=== PATIENT | male | born 1995 | race Caucasian/White ===

== ENCOUNTER 2017-01-09 14:59 | Emergency (ER) | payer MEDICAID ==
[~2017-01-09] VITALS: Ht 167.6 cm; Wt 54.2 kg
[2017-01-09 15:12] VITALS: BP 102/55
--- NOTE | 2017-01-09 16:20 | NUR ---
21/M PRESENT TO ER C/O BURNING URINATION x 4 DAYS AGO. PAIN 6/10 BURNING ON PENILE AREA. DENIES DISCHARGE OR ODOR. PT STATES HE HAD UNPROTECTED SEX 4 WEEKS AGO. AAOx4 , PERRLA, BREATHING EVEN AND UNLABORED. ERMD NOTIFIED OF PATIENT STATUS.
--- NOTE | 2017-01-09 16:29 | NUR ---
Patient being evaluated by physician at triage/overflow area.
[2017-01-09] MEDS ORDERED: cefTRIAXone 250 MG in LIDOCAINE 1% ED 0.9 ML IM ONE (16:30)
[2017-01-09 16:43] LABS: APPEARANCE,URINE CLEAR (CLEAR); BILIRUBIN,URINE NEGATIVE (NEGATIVE); BLOOD, URINE NEGATIVE (NEGATIVE); COLOR,URINE YELLOW (YELLOW); LEUKOCYTE ESTERASE ,URINE NEGATIVE (NEGATIVE); NITRITE, URINE NEGATIVE (NEGATIVE); PROTEIN,URINE TRACE (NEGATIVE); UGLUCOSE NEGATIVE (NEGATIVE); UROBILINOGEN,URINE 0.2 EU/dL (0.2 - 1)
[2017-01-09 16:55] LABS: BACTERIA,URINE RARE /HPF (None Seen); MUCUS,URINE 4+ /LPF (None Seen); RBC,URINE 0-3 /HPF (0-5); SQUAMOUS EPITHELIAL CELL,UR None Seen /LPF (0-3 (FEW))
--- NOTE | 2017-01-09 17:04 | NUR ---
Patient discharged with v/s stable. Written and verbal after care instructions given and explained. Patient alert, oriented and verbalized understanding of instructions. Ambulatory with steady gait. All questions addressed prior to discharge. ID band removed. Patient advised to follow up with PMD. Rx of DOXYCYCLINE 100MG given. Patient educated on indication of medication including possible reaction and side effects. Opportunity to ask questions provided and answered.
[2017-01-09 17:05] VITALS: BP 121/71
== END 2017-01-09 17:04 | disposition home or self-care (01) ==
LOC: MED 14:59
DX: R30.9 Painful micturition, unspecified (principal)
CPT/HCPCS: 36415; 81001; 81003; 87086; 96372; 99284; J0696; J2001

== ENCOUNTER 2018-07-22 11:50 | Emergency (ER) | payer SELFPAY ==
[~2018-07-22] VITALS: Ht 167.6 cm; Wt 56.7 kg
[2018-07-22 11:58] VITALS: BP 118/63
--- NOTE | 2018-07-22 12:00 | NUR ---
PT TRIAGED AND SENT TO ER LOBBY
--- NOTE | 2018-07-22 12:23 | NUR ---
PT TO ER BED 4
--- NOTE | 2018-07-22 12:53 | NUR ---
PATIENT PRESENTS TO ED WITH C/O OD BURNING PAIN WITH DRAINAGE X 4 DAYS---DENIES INJURY . DENIES N/V/D; SKIN IS PINK/WARM/DRY; AAOX4 WITH EVEN AND STEADY GAIT; LUNGS CLEAR BL; HR EVEN AND REGULAR; PT DENIES ANY FEVER, CP, SOB, OR COUGH AT THIS TIME; PATIENT STATES PAIN OF 8/10 AT THIS TIME; VSS; PATIENT POSITIONED FOR COMFORT; HOB ELEVATED; BEDRAILS UP X2; BED DOWN. ER MD MADE AWARE OF PT STATUS.
--- NOTE | 2018-07-22 14:22 | NUR ---
laying semi-fry's with sunglasses on ---continues to wait for dispo. feet crossed and arms folded over abdomen
[2018-07-22 15:01] VITALS: BP 118/63
--- NOTE | 2018-07-22 15:01 | NUR ---
Patient discharged with v/s stable. Written and verbal after care instructions given and explained. Patient alert, oriented and verbalized understanding of instructions. Ambulatory with steady gait. All questions addressed prior to discharge. ID band removed. Patient advised to follow up with PMD. Rx of ERYTHROMYCIN/ NAPHCON given. Patient educated on indication of medication including possible reaction and side effects. Opportunity to ask questions provided and answered.
== END 2018-07-22 15:01 | disposition home or self-care (01) ==
LOC: MED 11:50
DX: H10.31 Unspecified acute conjunctivitis, right eye (principal); Z98.890 Other specified postprocedural states
CPT/HCPCS: 99283

== ENCOUNTER 2020-01-01 20:33 | Emergency (ER) | payer OTHER ==
[~2020-01-01] VITALS: Ht 167.6 cm; Wt 54.4 kg
[2020-01-01 20:40] VITALS: BP 102/45
--- NOTE | 2020-01-01 20:53 | NUR ---
PT TAKEN TO ER 4
--- NOTE | 2020-01-01 20:55 | NUR ---
Dr. Boyle examining patient.
--- NOTE | 2020-01-01 21:00 | NUR ---
PT SITTING UPRIGHT, UNDSITURBED AND APPEARS UNDISTRESSED. NO ACUTE DISTRESS AT THIS TIME. BREATHING EVEN, UNLABORED.
[2020-01-01] MEDS ORDERED: cefTRIAXone 250 MG in LIDOCAINE MPF 1% 0.9 ML IM ONE (21:05)
[2020-01-01] MEDS ORDERED: AZITHROMYCIN 250 MG TAB PO ONE (21:05)
[2020-01-01] MEDS ORDERED: LIDOCAINE MPF 1% 5 ML ONE (21:09)
[2020-01-01] MEDS ORDERED: cefTRIAXone 250 MG VIAL ONE (21:09)
[2020-01-01 21:33] LABS: APPEARANCE,URINE CLEAR (CLEAR); COLOR,URINE YELLOW (YELLOW)
[2020-01-01 21:34] LABS: BILIRUBIN,URINE NEGATIVE (NEGATIVE); BLOOD, URINE NEGATIVE (NEGATIVE); LEUKOCYTE ESTERASE ,URINE NEGATIVE (NEGATIVE); NITRITE, URINE NEGATIVE (NEGATIVE); UGLUCOSE NEGATIVE (NEGATIVE)
[2020-01-01 21:35] VITALS: BP 102/45
--- NOTE | 2020-01-01 21:35 | NUR ---
Patient discharged with v/s stable. Written and verbal after care instructions given and explained. Patient alert, oriented and verbalized understanding of instructions. Ambulatory with steady gait. All questions addressed prior to discharge. ID band removed. Patient advised to follow up with PMD. Rx of Pyridium given. Patient educated on indication of medication including possible reaction and side effects. Opportunity to ask questions provided and answered.
[2020-01-04 06:07] LABS: CHLAMYDIA TRACHOMATIS AMP DNA Positive (Negative)
== END 2020-01-01 21:35 | disposition home or self-care (01) ==
LOC: MED 20:33
DX: R30.0 Dysuria (principal); A63.8 Other specified predominantly sexually transmitted diseases
CPT/HCPCS: 36415; 81003; 87491; 96372; 99283; J0696; J2001; 96374

== ENCOUNTER 2020-09-26 15:55 | Emergency (ER) | payer MEDICAID, OTHER ==
[~2020-09-26] VITALS: Ht 167.6 cm; Wt 54.4 kg
[2020-09-26 16:12] VITALS: BP 98/45
--- NOTE | 2020-09-26 17:21 | NUR ---
BIB SELF C/O RASH TO SID ARMPITS X 4 DAYS AND RIGHT HAND & RIGHT WRIST PAIN S/P FALL 1 WEEK.PMH: DENIES.AAOX4 WITH EVEN AND STEADY GAIT; LUNGS CLEAR BL; HR EVEN AND REGULAR; PT DENIES ANY FEVER, CP, SOB, OR COUGH AT THIS TIME; PATIENT STATES PAIN OF 10/10 AT THIS TIME. PATIENT POSITIONED FOR COMFORT; HOB ELEVATED; BEDRAILS UP X2; BED DOWN. ER MD MADE AWARE OF PT STATUS.
[2020-09-26] MEDS ORDERED: KETOROLAC 30 MG/ML VIAL IM ONE (17:25)
--- NOTE | 2020-09-26 17:30 | NUR ---
APPLIED VOLAR SPLINT TO RIGHT WRIST WITHOUT ANY ISSUES
[2020-09-26] MEDS ORDERED: NAPR-54 PO (17:42)
[2020-09-26] MEDS ORDERED: KEN.1O TP (17:42)
[2020-09-26] MEDS ORDERED: NYST15CR6 TP (17:42)
--- NOTE | 2020-09-26 18:09 | NUR ---
Patient discharged with v/s stable. Written and verbal after care instructions given and explained. Patient alert, oriented and verbalized understanding of instructions. Ambulatory with steady gait. All questions addressed prior to discharge. ID band removed. Patient advised to follow up with PMD. Rx of NAPROXEN, NYSTATIN & KENALOG given. Patient educated on indication of medication including possible reaction and side effects. Opportunity to ask questions provided and answered.
[2020-09-26 18:10] VITALS: BP 98/45
== END 2020-09-26 18:10 | disposition home or self-care (01) ==
LOC: MED 15:55
DX: M25.531 Pain in right wrist (principal); L30.9 Dermatitis, unspecified
CPT/HCPCS: 29125; 73110; 73130; 96372; 99284; J1885

== ENCOUNTER 2020-12-10 21:05 | Emergency (ER) | payer MEDICAID ==
[~2020-12-10] VITALS: Ht 165.1 cm; Wt 53.1 kg
[~2020-12-10 21:05] MED LIST: KEN.1O TP; NAPR-54 PO; NYST15CR6 TP
[2020-12-10 21:09] VITALS: BP 120/67
--- NOTE | 2020-12-10 22:20 | NUR ---
Patient evaluated by Dr. Summers. No nursing care provided for patient.
[2020-12-10] MEDS ORDERED: HYD2.5O TP (22:21)
--- NOTE | 2020-12-10 22:24 | NUR ---
Patient discharged by Dr. Summers. Discharge instructions and medication administrations/side effects explained by Dr. Summers. Patient discharged in stable condition. All questions asked and answered prior to discharge.
== END 2020-12-10 22:24 | disposition home or self-care (01) ==
LOC: MED 21:05
DX: L25.9 Unspecified contact dermatitis, unspecified cause (principal); Z79.899 Other long term (current) drug therapy
CPT/HCPCS: 99282

== ENCOUNTER 2021-12-22 12:41 | Emergency (ER) | payer MEDICAID, OTHER ==
[~2021-12-22] VITALS: Ht 167.6 cm; Wt 51.7 kg
[2021-12-22 12:54] VITALS: BP 126/72
--- NOTE | 2021-12-22 13:00 | NUR ---
HANDED SWAB TO RAÚL LA TECH
--- NOTE | 2021-12-22 13:27 | NUR ---
PT AMBULATED TO OUTSIDE THE LOBBY
--- NOTE | 2021-12-22 13:43 | NUR ---
DR SANCHEZ AT PT SIDE FOR FURTHER EVAL
--- NOTE | 2021-12-22 13:46 | NUR ---
26 Y/O MALE C/O OF SORE THROAT AND NON-PRODUCTIVE COUGHX1 WEEK. SATTING AT 99% RA, BILATERAL LUNG SOUNDS CLEAR, DENIES ANY MEDICATION FOR COUGH NKA PMH: DENIES
[2021-12-22] MEDS ORDERED: PHEN177S23 PO (13:49)
[2021-12-22] MEDS ORDERED: BENZ-300 PO (13:49)
[2021-12-22] MEDS ORDERED: IBUP-1842 PO (13:49)
[2021-12-22 14:06] VITALS: BP 126/72
--- NOTE | 2021-12-22 14:07 | NUR ---
Patient discharged with v/s stable. Written and verbal after care instructions given and explained. Patient alert, oriented and verbalized understanding of instructions. Ambulatory with steady gait. All questions addressed prior to discharge. ID band removed. Patient advised to follow up with PMD. Rx of CEPACOL SORE THROAT LOZENGE, MOTRIN, CHLORASEPTIOC 177ML given. Patient educated on indication of medication including possible reaction and side effects. Opportunity to ask questions provided and answered.
== END 2021-12-22 14:07 | disposition home or self-care (01) ==
LOC: MED 12:41
DX: U07.1 COVID-19 (principal); J02.9 Acute pharyngitis, unspecified; Z79.899 Other long term (current) drug therapy
CPT/HCPCS: 99283

== ENCOUNTER 2022-02-03 19:59 | Emergency (ER) | payer OTHER ==
[~2022-02-03] VITALS: Ht 167.6 cm; Wt 54.0 kg
[~2022-02-03 19:59] MED LIST changes: +BENZ-300 PO; +IBUP-1842 PO; +PHEN177S23 PO
[2022-02-03 20:19] VITALS: BP 109/61
--- NOTE | 2022-02-03 20:24 | NUR ---
pt to lobby
--- NOTE | 2022-02-03 23:30 | NUR ---
26/M BIB SELF C/C PENILE D/C XFRIDAY. PER PATIENT DISCHARGE IS WHITE IN COLOR. DENIES N/V/D/FEVER/URINARY SYMP/PAIN AT THIS TIME. PATIENT STATED HE HAS HAD CHLAMYDIA IN THE PAST. PATIENT IS CURRENTLY SEXUALLY ACTIVE. PATIETN IS AAOX4 AND AMBULATORY. DOESNT APPEAR TO BE IN DISTRESS. ALL NEEDS MET. PMHX , RX DENIES NKA
--- NOTE | 2022-02-03 23:32 | NUR ---
PT TO BED 6
--- NOTE | 2022-02-03 23:32 | NUR ---
Cherelle patino in [facility] - 02/03/22 at 2332 by SALO pt ambulated to alex
--- NOTE | 2022-02-03 23:45 | NUR ---
URINE COLLECTED AND DIPPED.
[2022-02-04] MEDS ORDERED: DOXYCYCLINE 100 MG CAP PO ONE (00:05)
[2022-02-04] MEDS ORDERED: cefTRIAXone 500 MG in LIDOCAINE MPF 1% 1 ML IM ONE (00:05)
[2022-02-04] MEDS ORDERED: cefTRIAXone 500 MG VIAL ONE (00:07)
[2022-02-04] MEDS ORDERED: LIDOCAINE MPF 1% 5 ML ONE (00:07)
--- NOTE | 2022-02-04 00:11 | NUR ---
PATIENT MEDICATED. TOLERATED WELL.
[2022-02-04] MEDS ORDERED: DOXY-690 PO (00:29)
--- NOTE | 2022-02-04 00:36 | NUR ---
Dr. Boyle examining patient.
[2022-02-04] MEDS ORDERED: DOXY-487 PO (00:53)
[2022-02-04 01:07] VITALS: BP 110/75
--- NOTE | 2022-02-04 01:07 | NUR ---
Patient discharged with v/s stable. Written and verbal after care instructions given and explained. Patient alert, oriented and verbalized understanding of instructions. Ambulatory with steady gait. All questions addressed prior to discharge. ID band removed. Patient advised to follow up with PMD. Rx of DOXYCYCLINE given.
--- NOTE | 2022-02-04 01:14 | NUR ---
The patient's care was reviewed and supervised by Concepción Loya RN.
== END 2022-02-04 01:07 | disposition home or self-care (01) ==
LOC: MED 19:59
DX: A64 Unspecified sexually transmitted disease (principal); Z79.2 Long term (current) use of antibiotics; Z79.899 Other long term (current) drug therapy; Z79.1 Long term (current) use of non-steroidal anti-inflammatories (NSAID)
CPT/HCPCS: 81002; 86592; 87491; 96372; 99283; J0696; J2001

== ENCOUNTER 2022-04-11 16:21 | Emergency (ER) | payer OTHER ==
[~2022-04-11] VITALS: Ht 167.6 cm; Wt 70.3 kg
[~2022-04-11 16:21] MED LIST changes: +DOXY-487 PO
--- NOTE | 2022-04-11 16:41 | NUR ---
PATIENT LEFT WITHOUT BEING SEEN BY DR. MURO. NO FURTHER CARE PROVIDED FOR PATIENT.
[2022-04-11 17:10] VITALS: BP 118/67
--- NOTE | 2022-04-11 17:30 | NUR ---
PT BROUGHT TO ROOM BY TRIAGE
[2022-04-11] MEDS ORDERED: BACITRACIN OINT 500 UNITS/GM PKT TP ONE (17:35)
--- NOTE | 2022-04-11 17:40 | NUR ---
KHADRA NAVA AT BEDSIDE
--- NOTE | 2022-04-11 17:50 | NUR ---
PT REFUSED TDAP, INSTRUCTED IN RISK OF INFECTION AND "LOCK JAW" WITH OPEN WOUND, PT VERBALIZED UNDERSTANDING AND CONT DESIRE TO NOT TAKE THE SHOT
--- NOTE | 2022-04-11 17:55 | NUR ---
BACITRACIN PLACE ON WOUND SITE
[2022-04-11] MEDS ORDERED: BACI1PAC6 TP (18:02)
--- NOTE | 2022-04-11 18:17 | NUR ---
PT LEFT BEFORE DISCHARGE PAPER WORK COULD BE GIVEN
== END 2022-04-11 18:17 | disposition home or self-care (01) ==
LOC: MED 16:21
DX: S60.410A Abrasion of right index finger, initial encounter (principal); Z79.899 Other long term (current) drug therapy; W26.0XXA Contact with knife, initial encounter; Y93.89 Activity, other specified; Y92.89 Other specified places as the place of occurrence of the external cause; Y99.8 Other external cause status
CPT/HCPCS: 90715; 99282

== ENCOUNTER 2023-03-16 19:42 | Emergency (ER) | payer OTHER ==
[~2023-03-16] VITALS: Ht 167.6 cm; Wt 56.7 kg
[~2023-03-16 19:42] MED LIST changes: +BACI-418 TP
[2023-03-16 20:30] VITALS: BP 117/99; PULSE 68; RESP 16; TEMP 97.7; O2SAT 99
[2023-03-16] MEDS ORDERED: MIRABULK PO (21:09)
[2023-03-16] MEDS ORDERED: HYDR-2734 TP (21:09)
[2023-03-16] MEDS ORDERED: DOCU-299 PO (21:09)
[2023-03-16] MEDS ORDERED: IBUP-2213 PO (21:09)
[2023-03-16] MEDS ORDERED: IBUPROFEN 600 MG TAB PO ONE (21:30)
== END 2023-03-16 21:52 | disposition home or self-care (01) ==
LOC: MED 19:42
DX: K62.89 Other specified diseases of anus and rectum (principal); Z79.899 Other long term (current) drug therapy; Z79.1 Long term (current) use of non-steroidal anti-inflammatories (NSAID); Z79.2 Long term (current) use of antibiotics
CPT/HCPCS: 99282